=== PATIENT | female | born 1960 | race Caucasian/White ===

== ENCOUNTER → 2017-11-07 | Outpatient (CLI) | payer OTHER | LOC: VAS 16:47 | DX: R94.39 Abnormal result of other cardiovascular function study (principal) ==

== ENCOUNTER 2019-05-14 13:00 | Outpatient (RCR) | payer OTHER | END 2019-05-14 13:30 | disposition home or self-care (01) | LOC: PT 13:00 | DX: Z98.890 Other specified postprocedural states (principal) ==

== ENCOUNTER → 2019-07-02 | Outpatient (CLI) | payer OTHER | LOC: RAD 08:25 | DX: N28.1 Cyst of kidney, acquired (principal) ==

== ENCOUNTER → 2019-07-17 | Outpatient (CLI) | payer OTHER | LOC: MAMMO 13:00 | DX: Z12.31 Encounter for screening mammogram for malignant neoplasm of breast (principal) ==

== ENCOUNTER 2020-04-29 14:30 | Outpatient (RCR) | payer OTHER | END 2020-04-29 15:00 | disposition still patient (30) | LOC: PT 14:30 | DX: M25.559 Pain in unspecified hip (principal) ==

== ENCOUNTER → 2021-09-30 | Outpatient (CLI) | payer OTHER | LOC: RAD 09:15 | DX: M16.0 Bilateral primary osteoarthritis of hip (principal); Z98.890 Other specified postprocedural states ==

== ENCOUNTER 2021-10-26 08:51 | Outpatient (RCR) | payer OTHER | END 2021-10-29 | disposition home or self-care (01) | LOC: PT | DX: M54.50 Low back pain, unspecified (principal) ==

== ENCOUNTER 2021-11-03 08:55 | Outpatient (RCR) | payer OTHER | END 2021-11-03 17:00 | disposition still patient (30) | LOC: PT 08:55 | DX: M54.50 Low back pain, unspecified (principal) ==

== ENCOUNTER 2022-03-26 09:54 | Outpatient (RCR) | payer OTHER | END 2022-03-31 | disposition home or self-care (01) | LOC: PT | DX: M54.50 Low back pain, unspecified (principal) ==

== ENCOUNTER 2022-09-01 08:02 | Outpatient (RCR) | payer OTHER | END 2022-09-17 11:25 | disposition home or self-care (01) | LOC: PT 08:02 | DX: M54.12 Radiculopathy, cervical region (principal); M48.02 Spinal stenosis, cervical region; M40.202 Unspecified kyphosis, cervical region; G95.89 Other specified diseases of spinal cord ==

== ENCOUNTER → 2022-09-09 | Outpatient (CLI) | payer OTHER | LOC: LAB 10:14 | DX: E03.9 Hypothyroidism, unspecified (principal) ==

== ENCOUNTER → 2022-09-24 | Outpatient (CLI) | payer OTHER ==
[2022-09-24 08:05] LABS: POTASSIUM 4.2 mmol/L (3.5-5.1)
[2022-09-24 08:06] LABS: CALCIUM 9.4 mg/dL (8.3-10.5)
== END ==
LOC: LAB 07:29
PROVIDERS: Internal Medicine
DX: E87.6 Hypokalemia (principal)

== ENCOUNTER → 2023-12-23 | Outpatient (CLI) | payer OTHER ==
[~2023-12-23] MED LIST: ATORVASTATIN CA80 MG PO; ESOMEPRAZOLE MA40 M1 PO; KLOR-CON M1515 MEQ PO; LEVOTHYROXINE125 MCG PO; METOPROLOL SUC200 M1 PO; PERCOCET 325 MG1 TA2 PO; PREGABALIN75 MG PO; ROPINIROLE HCL1 MG PO
== END ==
LOC: LAB 12:30
DX: E03.9 Hypothyroidism, unspecified (principal)

== ENCOUNTER → 2024-02-15 | Outpatient (CLI) | payer OTHER | LOC: MAMMO 15:00 | DX: Z12.31 Encounter for screening mammogram for malignant neoplasm of breast (principal); N64.89 Other specified disorders of breast; R92.1 Mammographic calcification found on diagnostic imaging of breast ==

== ENCOUNTER → 2024-02-28 | Outpatient (CLI) | payer OTHER | LOC: MAMMO 07:30 | DX: R92.8 Other abnormal and inconclusive findings on diagnostic imaging of breast (principal) ==

== ENCOUNTER → 2024-03-30 | Outpatient (CLI) | payer OTHER | LOC: LAB 10:02 | DX: E03.9 Hypothyroidism, unspecified (principal) ==

== ENCOUNTER → 2024-05-25 | Outpatient (CLI) | payer OTHER | LOC: LAB 11:46 | DX: E03.9 Hypothyroidism, unspecified (principal) ==

== ENCOUNTER → 2024-06-27 | Outpatient (CLI) | payer MEDICARE | LOC: LAB 11:34 | DX: E03.9 Hypothyroidism, unspecified (principal) ==

== ENCOUNTER → 2024-08-21 | Outpatient (CLI) | payer MEDICARE | LOC: MAMMO 07:28 | DX: N64.89 Other specified disorders of breast (principal) ==